=== PATIENT | female | born 1960 | race Caucasian/White ===

== ENCOUNTER 2019-05-10 11:12 | Emergency (ER) | payer BC ==
[~2019-05-10] VITALS: Ht 167.6 cm; Wt 69.2 kg
[2019-05-10] MEDS ORDERED: SODIUM CHLORIDE 0.9% 1000ML 1,000 ML IV SCH (11:45)
[2019-05-10] MEDS ORDERED: SODIUM CHLORIDE 0.9% 1000ML 1,000 ML ONE (12:35)
[2019-05-10] MEDS ORDERED: ONDANSETRON HCL INJ 2MG/ML 2ML 2 MG/ML VIAL ONE (12:52)
[2019-05-10] MEDS ORDERED: ONDANSETRON HCL INJ 2MG/ML 2ML 2 MG/ML VIAL IV STA (13:02)
[2019-05-10 13:09] VITALS: BP 151/96
== END 2019-05-10 13:53 | disposition home or self-care (01) ==
LOC: FSED 11:12
DX: R11.2 Nausea with vomiting, unspecified (principal); R19.7 Diarrhea, unspecified
CPT/HCPCS: 80053; 81003; 82553; 83518; 84484; 85025; 87400; 93005; 96374; 99283; J2405; J7030

== ENCOUNTER → 2020-01-31 | Outpatient (CLI) | payer BC ==
[2020-01-31 15:58] LABS: ALANINE AMINOTRANSFERASE 33 IU/L (0-55); ALKALINE PHOSPHATASE 83 IU/L (40-150); ANION GAP 12.1 mmol/L (8-16); BLOOD UREA NITROGEN 15 mg/dL (7-26); BUN/CREATININE RATIO 18 (6-25); CALCIUM 9.4 mg/dL (8.4-10.2); CARBON DIOXIDE 24 mmol/L (22-29); CHLORIDE 107 mmol/L (98-107); CHOL/HDL RATIO 3.9 (3.0-3.6); CHOLESTEROL 229 MD/DL (0-199); CREATININE, SERUM 0.83 mg/dL (0.57-1.11); EST GLOMERULAR FILTRATION RATE > 60 ML/MIN (60-); GLUCOSE 89 mg/dL (74-118); HDL CHOLESTEROL 59 MG/DL (40-60); LDL CHOLESTEROL 144 MG/DL (60-130); POTASSIUM 4.1 mmol/L (3.5-5.1); SODIUM 139 mmol/L (136-145); TRIGLYCERIDES 130 MG/DL (0-149)
[2020-01-31 16:19] LABS: FREE THYROXINE INDEX 2.1359 (1.4-3.8); THYROID STIMULATING HORMONE 3.301 uIU/mL (0.350-4.940)
--- NOTE | 2020-01-31 16:30 | Diagnostic Imaging Report ---
Thyroid Ultrasound Clinical Diagnosis: Hypothyroidism Comparison: None Technique: Multiple images were submitted for interpretation. Multiple longitudinal and transaxial images were performed with a high frequency linear transducer. Report: Right lobe: The right lobe measures 5.3 x 2.2 x 2.0. The echotexture is heterogeneous. There is presence of 1 nodule in the middle of the right thyroid lobe with solid and cystic components, isoechoic, smooth mendoza, comet tail calcification, measuring 1 x 0.6 x 1.3 cm. This lesion is TI-RADS 2. It is not suspicious. No FNAs needed. There is another heterogeneous area lower down in the right lobe that has mixed solid and cystic components, smooth margins, isoechoic, occasional comet tail calcification, it measures 1.6 x 1.2 x 1.6 cm. This is TI-RADS 2. Not suspicious. No FNA needed. Left lobe: The left lobe measures 5.1 x 2.4 x 2.4 cm. The lobe is heterogeneous. There are no distinct nodules, cysts, calcifications or masses. The isthmus measures 5 mm. Impression: Mild thyromegaly with findings as described above. Signed by: Danielito Garzon MD on 01/31/2020 4:27 PM
== END ==
LOC: US 15:13
PROVIDERS: ATTEND Obstetrics & Gynecology
DX: Z01.419 Encounter for gynecological examination (general) (routine) without abnormal findings (principal); E03.9 Hypothyroidism, unspecified
CPT/HCPCS: 36415; 76536; 80053; 80061; 82652; 84436; 84443; 84479

== ENCOUNTER → 2020-07-22 | Outpatient (CLI) | payer OTHER ==
[~2020-07-22] MED LIST: COVID-19 VACC, MRNA(MODERNA)/PF 100 MCG/0.5 ML VIAL IM ONE
== END ==
LOC: VACCPMC 16:00
DX: Z23 Encounter for immunization (principal); Z20.828 Contact with and (suspected) exposure to other viral communicable diseases

== ENCOUNTER → 2020-08-26 | Outpatient (CLI) | payer OTHER | END | DRG 951 | LOC: VACCPMC 10:26 | DX: Z23 Encounter for immunization (principal); Z20.822 Contact with and (suspected) exposure to COVID-19 | CPT/HCPCS: 0012A; 91301 ==

== ENCOUNTER → 2021-03-16 | Outpatient (CLI) | payer OTHER ==
[2021-03-16 11:47] LABS: POTASSIUM 4.4 mmol/L (3.5-5.1)
[2021-03-16 11:48] LABS: ALBUMIN 4.2 g/dL (3.5-5.0); ALBUMIN/GLOBULIN RATIO 1.1 (0.8-2.0); ANION GAP 13.4 mmol/L (8-16); CALCIUM 9.4 mg/dL (8.4-10.2); CHOL/HDL RATIO 3.6 (3.0-3.6); CREATININE, SERUM 0.89 mg/dL (0.57-1.11)
[2021-03-16 11:49] LABS: THYROID STIMULATING HORMONE 3.927 uIU/mL (0.350-4.940)
== END ==
LOC: LAB 10:02
PROVIDERS: ATTEND Obstetrics & Gynecology
DX: E55.9 Vitamin D deficiency, unspecified (principal)
CPT/HCPCS: 36415; 80053; 80061; 84443

== ENCOUNTER → 2021-05-26 | Outpatient (CLI) | payer OTHER | LOC: VACCPMC 10:15 | DX: Z23 Encounter for immunization (principal); Z20.822 Contact with and (suspected) exposure to COVID-19 | CPT/HCPCS: 91301 ==

== ENCOUNTER → 2022-03-08 | Outpatient (CLI) | payer BC ==
[2022-03-08 09:01] LABS: ALBUMIN/GLOBULIN RATIO 1.1 (0.8-2.0); ANION GAP 13.1 mmol/L (8-16); CALCIUM 9.1 mg/dL (8.4-10.2); CREATININE, SERUM 0.83 mg/dL (0.57-1.11); POTASSIUM 4.1 mmol/L (3.5-5.1)
[2022-03-08 10:05] LABS: CHOL/HDL RATIO 3.5 (3.0-3.6)
[2022-03-08 10:29] LABS: THYROID STIMULATING HORMONE 3.729 uIU/mL (0.350-4.940)
== END ==
LOC: LAB 08:10
PROVIDERS: ATTEND Obstetrics & Gynecology
DX: Z01.419 Encounter for gynecological examination (general) (routine) without abnormal findings (principal); E55.9 Vitamin D deficiency, unspecified
CPT/HCPCS: 36415; 80053; 80061; 84436; 84443; 84479